=== PATIENT | female | born 1975 | race Caucasian/White ===

== ENCOUNTER → 2016-03-07 | Outpatient (CLI) | payer BC ==
[~2016-03-07] MED LIST: ALBU18002 INH; ALBU1AER9 INH; BCPILLS PO; BUPR-79 PO; CETI10TA10 PO; CYM60 PO; DICL-201 PO; FLNIN/ NAE; FLUT115A INH; FLX/5 PO; GABA1CAP4 PO; IBUP-1277 PO; Juice Plus Fruit PO; METH1TAB12 PO; MOME200A INH; OMEG10007 PO; PRT/20 PO; RANI150C4 PO; SNG10 PO; VALA1TAB31 PO; [UNRECOGNIZED DRUG - OTHER] PO
--- NOTE | 2016-03-08 06:30 | DIAGNOSTIC IMAGING REPORT ---
LEFT FOOT MIN 3 VIEWS CLINICAL HISTORY: Left foot pain following injury. COMPARISON: Left foot radiographs December 27, 2013. FINDINGS: Alignment of the left foot is anatomic. The tarsometatarsal joints are intact. There is no acute fracture. There is minimal plantar calcaneal spurring. IMPRESSION: No acute fracture or dislocation of the left foot. Electronically signed by: Isael Rodriguez M.D. 03/08/2016 6:28 AM Dictated Date/Time: 03/08/2016 6:25 AM
== END | disposition home or self-care (01) ==
LOC: C.RDSM 16:01
PROVIDERS: ATTEND Physical Medicine & Rehabilitation Sports Medicine
DX: M79.672 Pain in left foot (principal)

== ENCOUNTER → 2016-03-10 | Outpatient (CLI) | payer BC ==
[2016-03-10 11:15] LABS: CHOLESTEROL/HDL RATIO 3.3
== END | disposition home or self-care (01) ==
LOC: C.LABBC 08:28
PROVIDERS: ATTEND Family Medicine
DX: Z13.220 Encounter for screening for lipoid disorders (principal); Z13.1 Encounter for screening for diabetes mellitus

== ENCOUNTER → 2016-06-15 | Outpatient (CLI) | payer BC ==
[2016-06-15 11:29] LABS: THYROID STIMULATING HORMONE 2.26 uIu/ml (0.300-4.500)
[2016-06-22 19:53] LABS: MICROSOMAL AB <1 IU/ML (<9)
== END | disposition home or self-care (01) ==
LOC: C.LABBC 08:22
PROVIDERS: ATTEND Family Medicine
DX: Z86.39 Personal history of other endocrine, nutritional and metabolic disease (principal)

== ENCOUNTER 2016-07-09 07:39 | Emergency (ER) | payer BC ==
[~2016-07-09] VITALS: Ht 162.6 cm; Wt 97.0 kg
[~2016-07-09 07:39] MED LIST changes: -ALBU18002 INH; -BUPR-79 PO; -DICL-201 PO; -METH1TAB12 PO; -MOME200A INH; -PRT/20 PO
[2016-07-09 07:41] VITALS: TEMP 36.7; Ht 162.6 cm; Wt 97.0 kg
--- NOTE | 2016-07-09 08:27 | DIAGNOSTIC IMAGING REPORT ---
CHEST 2 VIEWS ROUTINE CLINICAL HISTORY: SOB dyspnea COMPARISON STUDY: 03/18/2015 FINDINGS: Chronic interstitial change left base. Lungs otherwise are clear. Diaphragms smooth. IMPRESSION: Chronic change. No acute process. Electronically signed by: Zach Camarillo M.D. 07/09/2016 8:25 AM Dictated Date/Time: 07/09/2016 8:25 AM
[2016-07-09 08:37] LABS: BASO % 0.3 %; BASO ABS # 0.03 K/uL (0-0.2); COMPLETE YES; EOS % 2.5 %; HEMATOCRIT 41.2 % (37-47); IG% 0.3 %; LYMPH % 19.2 %; LYMPH ABS # 2.24 K/uL (1.2-3.4); MEAN CELL VOLUME 82.9 fL (80-100); MEAN CORPUSCULAR HEMOGLOBIN 26.6 pg (25-34); MONO % 6.1 %; NEUT % 71.6 %; PLATELET COUNT 304 K/uL (130-400); RED BLOOD COUNT 4.97 M/uL (4.2-5.4); WHITE BLOOD COUNT 11.67 K/uL (4.8-10.8)
[2016-07-09 08:55] LABS: ALT/SGPT 34 U/L (12-78); AST/SGOT 17 U/L (15-37); BLOOD UREA NITROGEN 13 mg/dl (7-18); BUN/CREATININE RATIO 13.1 (10-20); CARBON DIOXIDE 24 mmol/L (21-32); CHLORIDE 108 mmol/L (98-107); CREATININE 0.97 mg/dl (0.60-1.20); GLUCOSE 91 mg/dl (70-99); POTASSIUM 3.9 mmol/L (3.5-5.1); SODIUM 139 mmol/L (136-145)
[2016-07-09 08:56] LABS: CALCIUM 8.2 mg/dl (8.5-10.1)
[2016-07-09 08:59] LABS: ALB/GLOB RATIO 0.9 (0.9-2); ALKALINE PHOSPHATASE 58 U/L (45-117); CKMB/CK RATIO 2.9 (0-3.0)
[2016-07-09] MEDS ORDERED: PRT/20 PO (09:04)
[2016-07-09] MEDS ORDERED: MOME200A INH (09:04)
[2016-07-09] MEDS ORDERED: BUPR-79 PO (09:04)
[2016-07-09] MEDS ORDERED: ALBU18002 INH (09:04)
[2016-07-09] MEDS ORDERED: METH1TAB12 PO (09:04)
--- NOTE | 2016-07-09 09:23 | DIAGNOSTIC IMAGING REPORT ---
LEFT SHOULDER MIN 2 VIEWS ROUTINE CLINICAL HISTORY: L shoulder pain COMPARISON: None. DISCUSSION: The bones and joint spaces appear intact. There is no evidence of fracture, dislocation or bony disease. There is no evidence for soft tissue swelling. IMPRESSION: Negative study. Electronically signed by: Zach Camarillo M.D. 07/09/2016 9:21 AM Dictated Date/Time: 07/09/2016 9:20 AM
[2016-07-09] MEDS ORDERED: DICL-201 PO (10:09)
[2016-07-09 10:16] VITALS: BP 135/92; PULSE 69; O2SAT 99
--- NOTE | 2016-07-10 07:58 | EMERGENCY ROOM VISIT NOTE ---
History First contact with patient: 07:47 Chief Complaint: SHOULDER PAIN Stated Complaint: SHOULDER PAIN,INTENSE,SOB,SWEATING History of Present Illness The patient is a 41 year old white female who presents to the Emergency Room with complaints of left shoulder pain that she has had for 6 weeks. She states overnight it became worse. She denies any known trauma. She denies any overuse. She did have some shortness of breath last night as well as this morning. She is an asthmatic and uses her inhaler approximately once every 4 months. She states she had to use it twice last night. She also notes a few episodes of sweats last night. She was able to fall back asleep. She is unsure if she is just anxious. She denies any air travel or long car trips. No calf pain. She denies any loss of motion of the shoulder, but there is shoulder pain with any motion. No symptoms in the right arm. No other complaints. She has been using some Tylenol and Motrin without significant improvement. Review of Systems REVIEW OF SYSTEM: HEENT: No dizziness, visual problems, hearing loss, or tinnitus. There is no difficulty swallowing and no oral lesions are present. PULMONARY: No cough, shortness of breath, sputum production or hemoptysis. CARDIOVASCULAR: No chest pain, palpitations, shortness of breath or peripheral edema. GASTROINTESTINAL: No diarrhea, constipation, nausea, vomiting, or abdominal pain. GENITOURINARY: No dysuria, frequency, urgency or nocturia. NEUROLOGIC: No weakness, muscle tenderness, epilepsy or history of neurological problems. MUSCULOSKELETAL: No history of joint tenderness/swelling. No history of arthritis or arthralgias. SKIN: No rashes or lesions. PSYCHIATRIC: No history of depression or mental illness. ENDOCRINE: No history of diabetes, thyroid disorders, or abnormal hair growth. Past Medical/Surgical History Medical Problems: (1) Asthma (2) Lumb/Lumbosac Disc Degen (3) Pneumonia Surgical Problems: (1) Bilateral lower extremity fasciotomies (2) History of sinus surgery Family History Noncontributory. Social History Smoking Status: Former Smoker Smokeless Tobacco Use: No Alcohol Use: occasionally Drug Use: none Marital Status: single Housing Status: lives alone Occupation Status: employed Current/Historical Medications Scheduled Bupropion (Wellbutrin Sr), 150 MG PO QAM Cetirizine Hcl (Zyrtec), 10 MG PO HS Diclofenac (Voltaren), 75 MG PO BID Duloxetine HCl (Duloxetine HCl), 60 MG PO QAM Fish Oil (Kiel-3), 1 CAP PO QAM Fluticasone Propionate (Fluticasone Propionate), 2 SPRAYS MANDEEP QAM Methylphenidate Hcl (Ritalin), 20 MG PO QAM Mometasone Furoate-Formoterol (Dulera 200/5 Mcg), 1 PUFF INH QAM Montelukast Sod (Montelukast Sodium), 10 MG PO HS Pantoprazole (Protonix), 1 TAB PO QAM Ranitidine Hcl (Ranitidine Hcl), 150 MG PO BID Scheduled PRN Albuterol Sulfate (Proair Respiclick), 2 PUFF INH QID PRN for ASTHMA Ibuprofen (Advil), 400 MG PO Q6H PRN for Pain or Fever Valacyclovir Hcl (Valtrex), 2 GM PO UD PRN for Cold Sores Allergies Coded Allergies: Animal Dander (Verified Allergy, Unknown, asthma, 03/09/15) Chocolate (Verified Allergy, Unknown, stomach pain, 03/09/15) Grass (Verified Allergy, Unknown, asthma, 03/09/15) Molds and Smuts (Verified Allergy, Unknown, asthma, 03/09/15) Nut Tree (Verified Allergy, Unknown, scratchy throat, 03/09/15) Rice (Verified Allergy, Unknown, stomach pain, 03/09/15) Tomato (Verified Allergy, Unknown, scratchy throat, 03/09/15) Wheat (Verified Allergy, Unknown, stomach pain, 03/09/15) Uncoded Allergies: EGGPLANT (Allergy, Unknown, scratchy throat, 03/28/14) SOY (Allergy, Unknown, gi upset, 03/28/14) TREE NUTS (Allergy, Unknown, DIFFICULTY BREATHING, 03/09/15) TREES (Allergy, Unknown, asthma, 03/28/14) Physical Exam Vital Signs Date Time Temp Pulse Resp B/P Pulse Ox O2 Delivery O2 Flow Rate FiO2 07/09/16 10:16 69 18 135/92 99 Room Air 07/09/16 09:40 77 18 117/83 99 Room Air 07/09/16 07:41 36.7 88 16 134/94 95 Room Air Pain Rating (0-10): 2.0 Physical Exam Gen.: Well-developed, well-nourished, young obese white female in no acute distress. Sitting on a bed. Alert and oriented. Skin:Warm and dry with good turgor. No rashes or lesions. No ecchymosis or erythema. The patient is not diaphoretic. No abrasions. Heart: Heart RRR. No MGR. Peripheral pulses are 2+. Lungs: Lungs are clear to auscultation. No crackles rhonchi or wheezing. Good air movement. The patient is able to take a deep breath. Abdomen: Abdomen was inspected, auscultated, and palpated. Obese. Bowel sounds present x 4. Soft, nontender to palpation. No hepato-splenomegaly. No masses noted. No rebound. Musculoskeletal: Left shoulder has no obvious asymmetry or deformity. She has full range of motion including overhead reach. Motion above shoulder level does increase her discomfort. Full internal next rotation. Excellent behind the back reach. No weakness with Lassiter testing, and Neer impingement testing , or supraspinatus testing. Neer impingement testing does increase her discomfort. The others are unremarkable. No pain with palpation over the proximal biceps tendon. She does have some discomfort over the deltoid as well as the subacromial space. Elbow exam is benign. No pain with palpation of the anterior chest wall. Neurologic: Gross sensation is intact across the left upper extremity by soft touch. Medical Decision & Procedures ER Provider Diagnostic Interpretation: Chest x-ray obtained today was read by radiology as unremarkable. Left shoulder film obtained today was also read by radiology as unremarkable. EKG obtained today shows a normal sinus rhythm. No acute ST or T-wave changes. This was reviewed with Dr. Brown. Laboratory Results 07/09/16 08:05 Red Blood Count 4.97, Mean Corpuscular Volume 82.9, Mean Corpuscular Hemoglobin 26.6, Mean Corpuscular Hemoglobin Concent 32.0, Mean Platelet Volume 12.0, Neutrophils (%) (Auto) 71.6, Lymphocytes (%) (Auto) 19.2, Monocytes (%) (Auto) 6.1, Eosinophils (%) (Auto) 2.5, Basophils (%) (Auto) 0.3, Neutrophils # (Auto) 8.37, Lymphocytes # (Auto) 2.24, Monocytes # (Auto) 0.71, Eosinophils # (Auto) 0.29, Basophils # (Auto) 0.03 07/09/16 08:05 Test 07/09/16 08:05 White Blood Count 11.67 K/uL (4.8-10.8) Red Blood Count 4.97 M/uL (4.2-5.4) Hemoglobin 13.2 g/dL (12.0-16.0) Hematocrit 41.2 % (37-47) Mean Corpuscular Volume 82.9 fL (80-100) Mean Corpuscular Hemoglobin 26.6 pg (25-34) Mean Corpuscular Hemoglobin Concent 32.0 g/dl (32-36) Platelet Count 304 K/uL (130-400) Mean Platelet Volume 12.0 fL (7.4-10.4) Neutrophils (%) (Auto) 71.6 % Lymphocytes (%) (Auto) 19.2 % Monocytes (%) (Auto) 6.1 % Eosinophils (%) (Auto) 2.5 % Basophils (%) (Auto) 0.3 % Neutrophils # (Auto) 8.37 K/uL (1.4-6.5) Lymphocytes # (Auto) 2.24 K/uL (1.2-3.4) Monocytes # (Auto) 0.71 K/uL (0.11-0.59) Eosinophils # (Auto) 0.29 K/uL (0-0.5) Basophils # (Auto) 0.03 K/uL (0-0.2) RDW Standard Deviation 43.9 fL (36.4-46.3) RDW Coefficient of Variation 14.5 % (11.5-14.5) Immature Granulocyte % (Auto) 0.3 % Immature Granulocyte # (Auto) 0.03 K/uL (0.00-0.02) D-Dimer < 190 ug/L FEU (0-500) Anion Gap 7.0 mmol/L (3-11) Est Creatinine Clear Calc Drug Dose 88.1 ml/min Estimated GFR () 85.3 Estimated GFR (Non- 73.6 BUN/Creatinine Ratio 13.1 (10-20) Calcium Level 8.2 mg/dl (8.5-10.1) Total Bilirubin 0.5 mg/dl (0.2-1) Aspartate Amino Transf (AST/SGOT) 17 U/L (15-37) Alanine Aminotransferase (ALT/SGPT) 34 U/L (12-78) Alkaline Phosphatase 58 U/L (45-117) Total Creatine Kinase 102 U/L (26-192) Creatine Kinase MB 3.0 ng/ml (0.5-3.6) Creatine Kinase MB Ratio 2.9 (0-3.0) Troponin I < 0.015 ng/ml (0-0.045) Total Protein 7.4 gm/dl (6.4-8.2) Albumin 3.6 gm/dl (3.4-5.0) Globulin 3.8 gm/dl (2.5-4.0) Albumin/Globulin Ratio 0.9 (0.9-2) CBC, chem panel, CK/CK-MB, troponin, and d-dimer were obtained. They're all unremarkable. ED Course Patient was educated regarding today's findings. Conservative care measures were discussed. IV was established. Labs were obtained. EKG, chest x-ray, and left shoulder x-ray were all obtained. They were all unremarkable. Patient was reassured that I do not suspect cardiac source, PE, or fracture. Her symptoms are likely muscular in nature. I recommend that she follow up with her PCP for a physical therapy referral. Gentle stretching daily. Ice intermittently for discomfort. Prescription was provided for Voltaren 75 mg twice a day with food. Supplement with Tylenol. Avoid heavy lifting. Return to the ED for any acute changes. Medical Decision Possibility of PE, PA, CAD, pleurisy, fracture, tendinopathy, muscle strain, radicular pain, and overuse syndrome were considered, among others Impression Primary Impression: Left shoulder tendonitis Departure Information Dispostion Home / Self-Care Condition GOOD Prescriptions Diclofenac (Voltaren) 75 Mg Tabcr 75 MG PO BID for 10 Days, #20 TAB Prov: Mario Lazaro,P.A. 07/09/16 Forms HOME CARE DOCUMENTATION FORM, IMPORTANT VISIT INFORMATION Patient Instructions My [facility] Additional Instructions Follow-up with your PCP for orthopedic referral if symptoms are not improving You may benefit from PT Gentle stretching daily Warm moist compresses to the area before activity, and ice to the area after activity Voltaren one pill twice a day with food
== END 2016-07-09 10:20 | disposition home or self-care (01) ==
LOC: C.EDB 07:41 → C.EDA 10:20
DX: M75.32 Calcific tendinitis of left shoulder (principal); J45.909 Unspecified asthma, uncomplicated; Z87.891 Personal history of nicotine dependence; Z79.899 Other long term (current) drug therapy; Z91.018 Allergy to other foods; Z98.890 Other specified postprocedural states

== ENCOUNTER → 2016-07-26 | Outpatient (CLI) | payer BC ==
[~2016-07-26] MED LIST changes: +ALBU18002 INH; -ALBU1AER9 INH; -BCPILLS PO; +BUPR-79 PO; -FLUT115A INH; -FLX/5 PO; -GABA1CAP4 PO; -Juice Plus Fruit PO; +METH1TAB12 PO; +MOME200A INH; +PRT/20 PO; -[UNRECOGNIZED DRUG - OTHER] PO
== END | disposition home or self-care (01) ==
LOC: C.RDSM 15:29
PROVIDERS: ATTEND Orthopaedic Surgery Sports Medicine
DX: M19.072 Primary osteoarthritis, left ankle and foot (principal)

== ENCOUNTER → 2016-12-29 | Outpatient (CLI) | payer BC ==
--- NOTE | 2016-12-29 11:10 | DIAGNOSTIC IMAGING REPORT ---
CHEST 2 VIEWS ROUTINE HISTORY: 41 years-old Female R05 [id number] acute cough. COMPARISON: Chest radiograph 07/09/2016 TECHNIQUE: PA and lateral views of the chest FINDINGS: Cardiomediastinal and hilar silhouettes are within normal limits. No pneumothorax or pleural effusion. Linear subsegmental left basilar opacities are unchanged suggesting atelectasis/scarring. Bones of the chest are grossly intact. IMPRESSION: No acute cardiopulmonary process. The above report was generated using voice recognition software. It may contain grammatical, syntax or spelling errors. Electronically signed by: Herrera Raymond M.D. 12/29/2016 11:08 AM Dictated Date/Time: 12/29/2016 11:08 AM
== END | disposition home or self-care (01) ==
LOC: C.RAD1850 10:50
PROVIDERS: ATTEND Physician Assistant Medical
DX: R05 Cough (principal)

== ENCOUNTER → 2017-02-23 | Outpatient (CLI) | payer BC | END | disposition home or self-care (01) | LOC: C.PAPS 09:18 | PROVIDERS: ATTEND Physician Assistant | DX: Z01.419 Encounter for gynecological examination (general) (routine) without abnormal findings (principal) ==

== ENCOUNTER → 2017-03-08 | Outpatient (CLI) | payer OTHER ==
[2017-03-08 09:34] LABS: BASO % 0.4 %; BASO ABS # 0.05 K/uL (0-0.2); EOS ABS # 0.24 K/uL (0-0.5); HEMATOCRIT 39.3 % (37-47); HEMOGLOBIN 12.6 g/dL (12.0-16.0); IG# 0.03 K/uL (0.00-0.02); LYMPH % 18.7 %; LYMPH ABS # 2.27 K/uL (1.2-3.4); MEAN CELL VOLUME 83.1 fL (80-100); MEAN CORPUSCULAR HEMOGLOBIN 26.6 pg (25-34); MEAN CORPUSCULAR HGB CONC 32.1 g/dl (32-36); MEAN PLATELET VOLUME 11.8 fL (7.4-10.4); MONO % 6.6 %; NEUT % 72.1 %; NEUT ABS # 8.74 K/uL (1.4-6.5); PLATELET COUNT 306 K/uL (130-400); RED CELL DISTRIBUTION WIDTH CV 14.2 % (11.5-14.5); RED CELL DISTRIBUTION WIDTH SD 43.5 fL (36.4-46.3); WHITE BLOOD COUNT 12.13 K/uL (4.8-10.8)
[2017-03-08 09:42] LABS: ALBUMIN 3.3 gm/dl (3.4-5.0); ALT/SGPT 25 U/L (12-78); BLOOD UREA NITROGEN 15 mg/dl (7-18); CALCIUM 8.3 mg/dl (8.5-10.1); CARBON DIOXIDE 22 mmol/L (21-32); CHOLESTEROL 126 mg/dl (0-200); CREATININE 0.89 mg/dl (0.60-1.20); GLUCOSE 90 mg/dl (70-99); POTASSIUM 3.9 mmol/L (3.5-5.1); SODIUM 137 mmol/L (136-145)
[2017-03-08 09:52] LABS: ALKALINE PHOSPHATASE 50 U/L (45-117); AST/SGOT 17 U/L (15-37); LDL CHOLESTEROL CALCULATED 71 mg/dl; TOTAL PROTEIN 7.2 gm/dl (6.4-8.2)
== END | disposition home or self-care (01) ==
LOC: C.LAB1850 07:40
PROVIDERS: ATTEND Nurse Practitioner Adult Health
DX: Z00.00 Encounter for general adult medical examination without abnormal findings (principal); R53.83 Other fatigue; E61.1 Iron deficiency